=== PATIENT | male | born 1940 | race Caucasian/White ===

== ENCOUNTER → 2018-07-06 13:02 | Outpatient (CLI) | payer MEDICARE, OTHER, SELFPAY ==
--- NOTE | 2018-07-06 13:06 | DI.RAD.S_ITS ---
PROCEDURE: XR THORACIC SPINE 3V INDICATIONS: Myalgia, unspecified site/Other dorsalgia TECHNIQUE: 3 views of the thoracic spine were acquired. COMPARISON: None. FINDINGS: Bones: No fractures or dislocations. No suspicious bony lesions. Diffuse endplate spurring and sclerosis. Cervical disc degeneration also incidentally noted. Facet arthropathy. Partially mild lateral curvature of the visualized spine. Soft tissues: No paravertebral stripe thickening. Minimal diffuse thoracic disc space narrowing. IMPRESSION: Diffuse thoracic spine endplate spurring and sclerosis. No fracture. Cervical degeneration and facet arthropathy. Dictated by: Mauro Blackburn M.D. on 07/06/2018 at 13:49 Approved by: Mauro Blackburn M.D. on 07/06/2018 at 13:52
--- NOTE | 2018-07-06 13:06 | DI.RAD.S_ITS ---
PROCEDURE: XR LUMBAR SPINE 2-3V INDICATIONS: Myalgia, unspecified site/Other dorsalgia TECHNIQUE: 3 views of the lumbar spine were acquired. COMPARISON: None. FINDINGS: Bones: No fracture or focal osseous destruction. Straightening of the normal lumbar lordosis. Diffuse facet arthropathy. Moderate L5-S1 disc space narrowing. Elsewhere, mild uniform narrowing of the remaining lumbar disc spaces. Partially visualized dextrocurvature of the thoracolumbar spine Soft tissues: Overlying bowel gas pattern is normal. No suspicious soft tissue calcifications. Scattered vascular calcifications. IMPRESSION: Multilevel lumbar disc degeneration, most pronounced at L5-S1. Diffuse facet arthropathy. Straightening of the normal lumbar lordosis. Partially visualized thoracolumbar dextroscoliosis. Dictated by: Mauro Blackburn M.D. on 07/06/2018 at 13:44 Approved by: Mauro Blackburn M.D. on 07/06/2018 at 13:49
== END ==
PROVIDERS: PCP Physician Assistant; Visit Provider Physician Assistant
DX: M79.10 Myalgia, unspecified site (principal); M54.89 Other dorsalgia; M51.37 Other intervertebral disc degeneration, lumbosacral region; M47.816 Spondylosis without myelopathy or radiculopathy, lumbar region; M41.85 Other forms of scoliosis, thoracolumbar region
CPT/HCPCS: 72072; 72100

== ENCOUNTER → 2018-10-20 08:41 | Outpatient (CLI) | payer MEDICARE, OTHER, SELFPAY ==
--- NOTE | 2018-10-20 | DI.MRI.S_ITS ---
PROCEDURE: MR LUMBAR SPINE WO CON INDICATIONS: OTHER INTERVERTABRAL DISC DEGENERATION, LUMBAR REG. TECHNIQUE: Noncontrast sagittal T1 spin echo and T2 fast echo, sagittal STIR, axial T1 and T2 fast spin echo through the lumbar spine. In cases with scoliosis, additional coronal T2 fast spin echo may be performed. COMPARISON: None. FINDINGS: Image quality: Excellent. Alignment and Curvature: There is normal bony alignment. Bone Marrow: Marrow is of normal overall signal. Schmorl's node involving the inferior endplate of L3, with minimal adjacent marrow edema. No acute vertebral body compression fractures. Spinal Cord: Conus medullaris terminates at the L1/2 level. Visualized cord demonstrates normal signal and size. Paraspinous Soft Tissues: No paravertebral masses. L1-L2: Normal appearance. L2-L3: Normal appearance. L3-L4: Broad-based posterior disc bulge bilateral facet arthropathy. Mild central canal narrowing. Mild partial effacement of both lateral recesses. Mild right foraminal narrowing. No definite left foraminal stenosis L4-L5: Mild broad-based posterior disc bulge and bilateral facet arthropathy. No definite canal or lateral recess narrowing. Mild left and moderate right foraminal narrowing L5-S1: Broad-based posterior disc bulge bilateral facet arthropathy. No central canal or lateral recess narrowing. [id number] left and severe right foraminal stenosis with mild flattening deformity of the exiting nerve root primarily in the cephalocaudad dimension IMPRESSION: Lower lumbar spondylosis and facet arthropathy primarily from L3-S1. Severe right L5-S1 foraminal stenosis. Moderate right L4-L5 foraminal stenosis. Straightening of the normal cervical lordosis. Dictated by: Mauro Blackburn M.D. on 10/22/2018 at 12:32 Approved by: Mauro Blackburn M.D. on 10/22/2018 at 12:40
== END ==
PROVIDERS: PCP Physician Assistant; Visit Provider Physician Assistant
DX: M51.36 Other intervertebral disc degeneration, lumbar region (principal); M47.816 Spondylosis without myelopathy or radiculopathy, lumbar region; M47.817 Spondylosis without myelopathy or radiculopathy, lumbosacral region; M48.061 Spinal stenosis, lumbar region without neurogenic claudication; M48.07 Spinal stenosis, lumbosacral region
CPT/HCPCS: 72148

== ENCOUNTER 2019-02-21 06:01 | Inpatient (IN) | payer MEDICARE, OTHER, SELFPAY ==
[2019-02-19 12:40] VITALS: BMI 25.9
[2019-02-21] VITALS (13 sets, daily range): BP systolic 98–154; BP diastolic 61–77; PULSE 68–91; RESP 10–20; TEMP 36.4–37.1; O2SAT 90–98; BMI 25.9
--- NOTE | 2019-02-21 | DI.RAD.S_ITS ---
PROCEDURE: XR LUMBAR SPINE 2-3V INDICATIONS: L5-S1 Laminectomy and instrumented fusion with bone graft TECHNIQUE: 2 views of the lumbar spine were acquired. COMPARISON: [facility], CR, XR LUMBAR SPINE 2-3V, 07/06/2018, 13:11. FINDINGS: Bones: 5 [id number] vertebrae are present. There is normal bony alignment established after transverse pedicle screw placement and vertical fixation rods crossing the L5-S1 level with interbody cage this prosthesis at L5-S1 centrally positioned. No vertebral body compression fractures. No suspicious bony lesions. Soft tissues: Overlying bowel gas pattern is normal. No suspicious soft tissue calcifications. IMPRESSION: Normal postoperative alignment after L5-S1 fusion by bilateral transverse pedicle screws and bilateral vertical fixation rods, and placement of interbody cage this prosthesis. Dictated by: Gautam Leon M.D. on 02/21/2019 at 10:50 Approved by: Gautam Leon M.D. on 02/21/2019 at 10:51
[2019-02-21] MEDS: LACTATED RINGERS 1,000 ML 42 ML IV ×2 (07:00→09:41)
--- NOTE | 2019-02-21 07:24 | PM.PREOP ---
Pre-operative Note Interval Note History & Physical reviewed/Exam performed by Physician: Yes Changes to H&P: No
--- NOTE | 2019-02-21 07:27 | PM.OP.1 ---
Operative Date/Time/Diagnoses Date of procedure: 02/21/19 Time of procedure: 10:15 Pre-op diagnosis: Lumbar stenosis with radiculopathy Post-op diagnosis: same Procedure & Clinicians Procedure: L5-S1 TLIF (post/post innerbody fusion) with cage L5-S1 laminectomy L5, S1 screws Iliac crest bone graft aspirate Use of microscope Placement of epidural catheter Same procedure as scheduled: Yes Indications: [age] year old male with intractable pain from stenosis. They had failed conservative management and requested operative intervention. Risks and benefits of surgery were discussed and appropriate consents were obtained. Surgeon: Ector Wilosn Board Machine Set Up Operator: Jacquelin Shields Anesthesia Type: General Operative Notes Findings: None Closure Type: primary Specimen(s): none sent Prosthetic devices, grafts, tissues, transplants, or devices: NuVasive MAS Reline screws Globus Rise cage Applied: catheter Estimated Blood Loss (mL): 20 Procedure in detail: The patient was brought to the operating room and intubated on the table. A time-out was performed. They were then rolled over to the well-padded Ifeanyi table in the prone position. Preoperative antibiotics were given. The back was prepped and draped in the standard sterile fashion. Using fluoroscopy, a 4 cm longitudinal incision was made to the right of the midline. We used Bovie to come down to and split the lumbodorsal fascia. Using fluoroscopy and monitoring, we then percutaneously placed Jamshidi needles down the pedicles of L5 and S1 on the right side. His bone was soft and we did not need to use a mallet for this. These were changed out to guidewires and then we tapped and then placed the NuVasive MAS Reline screw shanks. We then opened up the retractors and used Bovie to clear up the posterolateral gutter as well as medially along the lamina to the spinous processes. A bur was used to decorticate the transverse processes. We brought in the microscope. Using a combination of bur and Kerrison rongeurs, a laminectomy was performed from the right side. We cleared over past the midline and carefully depressed the dura until we were able to decompress the opposite side. We cleared out the neural foramen. This completed the laminectomy at L5-S1. We then began the TLIF prep. A complete facetectomy was performed on this side at L5-S1. We carefully cleaned up the remainder of the foramen until we could easily retract the exiting root as well as clearing medially below the dura and expose the disc space. The disc was prepped with bipolar and then an annulotomy was performed. We performed a diskectomy using a combination of paddles, viviana, pituitaries, and curettes. We distracted the disc using a paddle and locked the retractor in an open position. We then filled the disc space with Osteocel bone graft. We then placed the globus Rise cage under fluoroscopy. As we began expanding the cage stayed on the superior endplate of S1 but began pushing up through the inferior endplate of L5. I think this is just due to his osteoporosis. We then filled in posterior to the cage with more bone graft. The distraction on the retractor was released to compress down. This completed the posterior interbody fusion portion of the TLIF at L5-S1. We then placed the screw heads, tyler, and locked down the set screws. The wound was copiously irrigated. A small stab incision was made over the PSIS. We used a Jamshidi needle to aspirate several mL of bone marrow from the pelvis. This was mixed with the remaining Osteocel and combined with all of the locally harvested bone graft and placed in the posterolateral gutter for the posterior fusion of the TLIF at L5-S1. An epidural catheter was then placed in the spinal canal by carefully depressing the dura and advancing it 6 cm cephalad under the remaining lamina without resistance. The muscle fascia was closed. The catheter was then injected with a solution containing 4 mL of 0.5% Marcaine, 1 mg Stadol, 4 mg Duramorph, and 100 mcg of fentanyl. This was injected without resistance and the catheter was pulled. We then went to the opposite side. Again using fluoroscopy, a 3 cm incision was made and Bovie was used to come down to split the fascia. Using neural monitoring and fluoroscopy, Jamshidi needles were advanced down the pedicles of L5 and S1 on the left side. These were switched over guidewires, tapped, and screws placed. We then placed a tyler and locked the set screws on this side. The wound was irrigated. The fascia was closed. Vancomycin powder was placed in the wounds. The superficial and skin were closed. A sterile dressing was placed. The patient was then rolled over extubated and brought to recovery room without complications. Complications: none Condition: stable Disposition: PACU Plan for aftercare: Inpatient. Up with PT.
[2019-02-21] MEDS: CEFAZOLIN 2 GM/100 ML FROZ.PIGGY IV ×3 (07:47→23:58)
[2019-02-21] MEDS: THROMBIN (RECOMBINANT) 5,000 UNIT VIAL 5000 UNIT TOP (08:24)
[2019-02-21] MEDS: VANCOMYCIN 1,000 MG VIAL 1000 MG TOP (08:25)
[2019-02-21] MEDS: SODIUM CHLORIDE 0.9% 1,000 ML, GENTAMICIN 80 MG IRR ×2 (08:25→08:31)
[2019-02-21] MEDS: BUPIVACAINE 0.5% (PF) 4 ML, MORPHINE-PF 4 MG, BUTORPHANOL 1 MG, fentaNYL 100 MCG INJ (08:32)
--- NOTE | 2019-02-21 08:35 | SUR.OPER ---
Prone on spine table, head in foam head support, padded chest and pelvic supports, gel pad at knees, lower legs supported by pillows; nipples, genitalia and toes free of pressure, arms secured on foam padded arm boards at <90 degrees abduction. Tape over blanket at thigh secured to table.
--- NOTE | 2019-02-21 09:17 | CM.DANOTE ---
Addendum entered by Melanie Marroquin LPN 02/21/19 09:30: INPT admission status: now confirmed/UR RN. Original Note: Discharge Planning/Care Management DCP: assessment: initiated: pt at this time is still in surgery. Case received, EMR reviewed: documentation including the pre-op assessment: below: with Sharon Mckenna: noted. Pt is a 79 year old male who admitted early this morning for a planned spinal surgery. Surgeon: Dr. Garcia Payer: Medicare and [facility] PCP: Briseida Golden Pt lives with his spouse Chris in a one level home in [place]. Review of the scanned H&P: TALIA Romero: shows medical hx of Juvenile RA, hypertension, COPD and anemia. Anticipate PT and OT will be ordered. DCP team will be following for d/c issues and options. Admission status: in review: UR PREMA Suazo. CM Discharge Assessment Start: 02/21/19 09:17 Freq: Status: Active Protocol: Document 02/21/19 09:17 ITV (Rec: 02/21/19 09:17 ITV [id number]) Discharge Planning Assessment Advance Directives? No History Provided By Medical Record Prior Living Arrangements House Household Members spouse Review Status In Process Pre-Anesthesia Assessment Start: 02/19/19 12:40 Freq: Status: Active Protocol: Document 02/19/19 12:40 CAB (Rec: 02/19/19 13:38 CAB [id number]) Pre-Anesthesia Assessment Patient Also Known As Henriquez (AKA) Patient Information Reviewed Via Phone Assessment Assessment Completed With Patient Diagnostic Results BMP/CMP CBC EKG Comment Outside labs/EKG scanned to record, labs are within PCP pre-op note Primary Care Provider Briseida Golden Medical Clearance Received Yes Seen Specialist in Last 12 Months Yes Specialist Seen Orthopedist Comment PCP pre-op clearance 02/01/19 scanned into chart Primary Language Italian Private Advisor Required No Height 177.8 cm Weight 82.1 kg Body Mass Index (BMI) 25.9 Hearing Ability Normal Visual Assist Glasses Dentition Type Teeth, Natural Present Barriers to Learning None Other Aids No Hx Anesthesia Reactions No Hx Family Anesthesia Reaction No Hx Malignant Hyperthermia No Hx Blood Transfusions No Anesthesia Review Requested No alcohol intake former Alcohol Intake Frequency Other: Quit 30 years ago Smoking Status Former smoker how long ago did patient quit smoking Quit 2005 Substance Use Type does not use Pain Present Pain Reported Musculoskeletal Symptoms Abnormal Gait Back Pain Difficulty Walking Joint Pain Muscle Cramps Muscle Spasms Muscle Weakness Numbness Radiating Pain into Limb Tingling History of Falling (Recent or History of No ) Patient is completely paralyzed or No completely immobile Mental Status Oriented to own ability Is patient on oxygen? No Does patient have MARMOLEJO/SOB No Hx Sleep Apnea No Currently Taking a Beta Guerda No Can You Climb a Flight of Stairs Without Yes SOB Hx Chest Pain No Hx SOB No Hx Syncope or Dizziness No Anti-Coagulant Therapy No Has a Bank Boss No Cardiac Testing No Hx Pacemaker/ICD No Pacemaker Rep Required? No Cardiac Clearance Received Not Applicable Diet Type At Home Regular dysphagia No Genitourinary Symptoms Change in Urinary Stream Bladder Pattern Frequency Hesitancy Nocturia Retention Urinary Catheter Present No Hx Urinary Self Catheterization No Diabetes No: Pre-diabetes HgbA1C 6.1 Date 02/01/19 Hx Drug Resistant Organism H-pylori Presence of External or Internal Medical No Devices Have you traveled outside the [facility] in the last 30 days? Marital Status Lives With spouse Prior Living Arrangements House Number of Floors (Floors) One Floor Support System Spouse Does the Patient Have Assistance After Yes Surgery Patient Discharge Plan Description Return Home Comment Pt advised 3 day length of stay per surgeon's office Feels Safe in Current Environment Yes Been Physically Hurt or Threatened By a No Person in Current Environment Do you have thoughts of harming yourself None or others? Are you currently considering suicide? No Do you have a plan to hurt yourself or No Plan others? Do You Have Any Spiritual Beliefs That No May Affect Your HC Choices? Do You Have Any Cultural Practices That No May Affect Your HC Choices? Who Can We Speak to About Patient's Care Family, friends Identifying Code for Release of Patient Declines to issue Information Health Care Proxy/Next of Kin Paloma () Health Care Proxy Emergency Contact Name Paloma () Emergency Contact Advance Directives? Pt unsure Power of Intern Architect No PAC Instructions Do not shave/clip surgical site Durable medical equipment Medications to take/avoid Nasal antibiotic No ETOH/petroleum product on skin DOS NPO Post-op transportation Pre-surgical wash Sturdy shoes/comfortable clothes Do not bring valuables and remove jewelry
[2019-02-21] MEDS: LACTATED RINGERS 1,000 ML 125 ML IV ×2 (13:20→21:43)
[2019-02-21] MEDS: SIMVASTATIN 10 MG TABLET PO ×2 (13:26→20:51)
[2019-02-21] MEDS: CELECOXIB 200 MG CAPSULE 400 MG PO (13:41)
--- NOTE | 2019-02-21 16:10 | PT.IIE ---
Current Diagnoses Spinal stenosis, lumbar region with neurogenic claudication (02/21/19) Surgery Performed Operation Date: 02/21/19 07:45 Actual Procedures p L5S1 laminectomy and instrumented fusion with bone graft - Ector Wilson MD Surgical History (Last Updated 02/19/19 @ 13:15 by Sharon Mckenna, RN) History of tonsillectomy and adenoidectomy (Acute) Hx of bilateral cataract extraction (Acute) Hx of transurethral resection of prostate (Acute) Medical History (Last Updated 02/19/19 @ 13:17 by Sharon Mckenna RN) Acid reflux (Acute) Allergic rhinitis (Acute) BPH (benign prostatic hyperplasia) (Acute) COPD (chronic obstructive pulmonary disease) (Acute) DDD (degenerative disc disease) (Acute) Dermatitis (Acute) Detached vitreous humor (Acute) H. pylori infection (Acute ~2001) HLD (hyperlipidemia) (Acute) HTN (hypertension) (Acute) History of juvenile rheumatoid arthritis (Acute) Numbness and tingling (Acute) Sciatica (Acute) Skin cancer (Acute ~2008) Physical Therapy Inpatient Evaluation/Re-Eval M1 PT/OT-IP Prior Functional Status Start: 02/21/19 18:27 Freq: NEEDED Status: Active Protocol: Document 02/21/19 16:10 AB (Rec: 02/21/19 18:50 AB [id number]) Medical Review Prior Functional Status Medical History Reviewed Yes Communication able to make needs known Mobility and Gait pt stated that he is independent with all mobilities and ambulation without AD Social History Household Members spouse Living Arrangements House Number of Floors (Floors) One Floor Number of Stairs To Enter/Railing? 1 step to enter Home Environment Standard Height Toilet Walk in Shower Built-In Shower Seat Home Equipment Front Wheel Walker Employment Status Retired M2 PT-IP Current Condition Start: 02/21/19 18:27 Freq: NEEDED Status: Active Protocol: Document 02/21/19 16:10 AB (Rec: 02/21/19 18:50 AB [id number]) Physical Therapy Current Condition Current Condition Evaluation Date 02/21/19 Treatment Diagnosis s/p L5-S1 TLIF/lami; difficulty in walking Onset Date 02/21/19 Precautions Lumbar Precautions Log Roll No Twisting Limit Bending Lifting Restriction of 10 lbs Gait Belt above Incisional Area M3 PT-IP Subjective Start: 02/21/19 18:27 Freq: NEEDED Status: Active Protocol: Document 02/21/19 16:10 AB (Rec: 02/21/19 18:50 AB [id number]) Subjective Physical Therapy Visit Type Type Initial Evaluation Visit Start Time 16:10 Visit Stop Time 17:04 Total Visit Minutes 54 Number of WASHTUB WORKER HELPER Visits 0 Physical Therapy Visit Comments Patient Comments pt agreeable to do PT Therapy Pain Assessment Pain When Pain Assessed At Rest Pain Present Pain Present Pain Reported Location Lower Back Intensity 2 Scale Used Numeric (1 - 10) Pain Management Techniques Re-positioning Timing of Activity with Medications M4 PT-IP Mobility and Gait Start: 02/21/19 18:27 Freq: NEEDED Status: Active Protocol: Document 02/21/19 16:10 AB (Rec: 02/21/19 18:50 AB [id number]) PT-Bed Mobility Assessment Rolling Type of Rolling Log Rolling Level of Assist Minimal Assistance Supine to Sit Supine to Sit Minimal Assistance 1 Person Assistance Scooting Scooting to Edge of Bed Standby Assistance PT-Transfer Assessment Sit to and From Stand Sit to and from Stand Minimal Assistance 1 Person Assistance Use of Upper Extremities Equipment Transfer Assistive Device Gait Belt Front Wheeled Walker Orthotic/Prosthetic Devices or Brace: No Transfers Transfer Destination Chair Transfer Technique Stand Step Pivot Transfer Ability Level of Assist Minimal Assistance 1 Person Assistance Use of Upper Extremities Comments Mobility Comments BP: 138/68 reviewed back precautions and log roll bed mobility. pt with confusion and stated that it is hard for him to process information at this time. provided one step commands and max cues with all tasks. spouse present during PT session. pt completed bed mobility supine to sit min A and max cues. pt required increase time to complete tasks and repeated cues needed . pt stated that he knows what PT is saying but unable to process instructions. BP: 135/67. pt completed sit to stand min A and cues. pt increase sweating and with (+) arm shaking. instructed pt to sit down. pt stated he is ok. call for nurse. BP checked: 135/58. pt rested for a few minutes and wants to stand again. pt completed sit to stand min A and cues and completed step transfer using FWW min A and cues. positioned pt on chair. set up dinner. call light set within reach. Left pt with spouse. Gait Assessment Comments Gait Comments pt was able to take a few steps during transfers using FWW min A and cues. PT-Balance Assessment Sitting Balance and Reactions Static Sitting Balance Ability Good Dynamic Sitting Balance Ability Good Standing Balance and Reactions Static Standing Balance Ability Fair Dynamic Standing Balance Ability Fair Device Used FWW M5 PT-IP Objective Assessments Start: 02/21/19 18:27 Freq: NEEDED Status: Active Protocol: Document 02/21/19 16:10 AB (Rec: 02/21/19 18:50 AB [id number]) Orientation Orientation/Cognition Level of Alertness Confusional State Orientation Name Place Situation Language Function Ability Hard of Hearing Safety Awareness Decreased Safety Awareness Memory Description Short Term Impaired Comments pt has difficulty processing information/instruction and needs max cues and repeated cues with all tasks. Gross Range of Motion Lower Extremity ROM Assessment Within Functional Limits Strength Lower Extremity Strength Assessment Within Functional Limits Coordination Assessment Gross Coordination Gross Coordination WNL Sensation Assessment Sensation Gross Sensation WNL Muscle Tone Muscle Tone WNL Yes M6 PT-IP Treatment Start: 02/21/19 18:27 Freq: NEEDED Status: Active Protocol: Document 02/21/19 16:10 AB (Rec: 02/21/19 18:50 AB [id number]) Physical Therapy Treatment Education Education Provided Precautions Weight Bearing Status Post-Op Packet Safety Other Treatments Other Treatment Performed informed pt and spouse regarding equipement needs: shower chair, RTS M7 PT-IP Assessment and Plan Start: 02/21/19 18:27 Freq: NEEDED Status: Active Protocol: Document 02/21/19 16:10 AB (Rec: 02/21/19 18:50 AB [id number]) PT Summary Assessment and Plan Potential Rehabilitation Potential Good Status of Condition at Evaluation Evolving Summary Impairments Pain ROM Strength Balance Coordination Cognition Bed Mobility Transfers Gait Activity Tolerance Assessment Summary pt requiring min A with mobility but was not able to do much ambulation today. pt has difficulty following instructions. will continue to assess progress. pt plans to go home with spouse to assist him. caregiver training will be conducted when appropriate and also stair climbing prior to d/c. Goals Bed Mobility Goal Independent Transfer Goal Standby Assistance Front Wheeled Walker Gait Goal Standby Assistance Front Wheel Walker Gait Distance 200 Other Goals up/down 1 step using FWW SBA Days to Meet Goals 5 Frequency of Treatment Frequency Of Treatment Twice a Day Treatment Plan Physical Therapy Treatment Plan Bed Mobility Training Transfer Training Gait Training Therapeutic Exercise Balance Retraining Post Op Education Discharge Planning Hot or Cold Pack Neuromuscular Re-ed Coordination Retraining Manual Therapy Other Recommendations and Next Treatment bed mobility, transfers, Focus ambulation Recommendations To Nursing Amount of Assist Needed 1 Person Assist Discharge Recommendations PT Discharge Recommendations Home with / Assist
[2019-02-21] MEDS: HYDROCODONE/ACET 5/325 TABLET 1 TAB PO (18:02)
[2019-02-21] MEDS: SENNOSIDES 8.6 MG TABLET 17.2 MG PO (20:51)
[2019-02-21] MEDS: DOCUSATE 100 MG CAPSULE PO (20:51)
[2019-02-21] MEDS: CELECOXIB 200 MG CAPSULE PO (20:51)
[2019-02-22] VITALS (7 sets, daily range): BP systolic 110–166; BP diastolic 44–83; PULSE 62–90; RESP 15–18; TEMP 36.8–37.3; O2SAT 92–96
[2019-02-22] MEDS: LACTATED RINGERS 1,000 ML 125 ML IV (05:49)
[2019-02-22 06:59] LABS: Hematocrit 40.2 % (41-53); Hemoglobin 13.3 g/dL (13.5-17.5)
--- NOTE | 2019-02-22 07:29 | PM.PNPO.1 ---
Subjective Date Patient Seen: 02/22/19 Time Patient Seen: 07:29 Interval history: He is doing great now. No pain. Exam Vital Signs (past 8 hours): - 02/22/19 00:00 02/22/19 05:00 Temperature 98.8 F 98.8 F Pulse Rate 65 62 Respiratory Rate 18 18 Blood Pressure 118/70 110/81 Pulse Oximetry 96 96 Oxygen Delivery Method Room Air Oxygen Flow Rate 0 Const Orientation: alert and oriented x3 Back/Spine/Pelvis Other: CDI. 5/5 motor both lower extremities Objective Labs Result Diagrams: 02/22/19 06:59 Labs: Laboratory Results - last 24 hr 02/22/19 06:59 Hgb 13.3 L Hct 40.2 L Assessment & Plan Post-op Postoperative Procedures Operation Date: 02/21/19 07:45 Actual Procedures Side Surgeon p L5S1 laminectomy and instrumented fusion with bone graft Ector Wilson MD He is doing great. I presume his epidural will wear off and he will be having more pain as the day progresses. Mobilize with physical therapy. If he is still doing great this afternoon could possibly go home.
--- NOTE | 2019-02-22 08:48 | CM.DPC ---
DCP: continued: met with pt this morning as planned. Introduced self and role. Pt is found sitting up in bed, looking on [employer] site for needed DME. He says he plans to have the therapy team look at his list and then will order accordingly. He already has the FWW at home. Pt confirms his plan for home with his 's support when stable for same. He reports brief PT yesterday afternoon. I was able to go a few feet to the chair. He says he is looking forward to his more extensive therapy sessions today. P: follow prn. Pt's plan is home when stable and thus far looks good for same.
[2019-02-22] MEDS: DOCUSATE 100 MG CAPSULE PO ×2 (09:52→20:24)
[2019-02-22] MEDS: CELECOXIB 200 MG CAPSULE PO ×2 (09:52→20:23)
[2019-02-22] MEDS: hydroCHLOROthiazide 12.5 MG CAPSULE PO (09:52)
--- NOTE | 2019-02-22 10:06 | PT.IPTN ---
Current Diagnoses Spinal stenosis, lumbar region with neurogenic claudication (02/21/19) Surgery Performed Operation Date: 02/21/19 07:45 Actual Procedures p L5S1 laminectomy and instrumented fusion with bone graft - Ector Wilson MD Physical Therapy Treatment Note M2 PT-IP Current Condition Start: 02/21/19 18:27 Freq: NEEDED Status: Active Protocol: Document 02/21/19 16:10 AB (Rec: 02/21/19 18:50 AB [id number]) Physical Therapy Current Condition Current Condition Evaluation Date 02/21/19 Treatment Diagnosis s/p L5-S1 TLIF/lami; difficulty in walking Onset Date 02/21/19 Precautions Lumbar Precautions Log Roll No Twisting Limit Bending Lifting Restriction of 10 lbs Gait Belt above Incisional Area M3 PT-IP Subjective Start: 02/21/19 18:27 Freq: NEEDED Status: Active Protocol: Document 02/22/19 09:30 LJ (Rec: 02/22/19 10:05 LJ [id number]) Subjective Physical Therapy Visit Type Type Treatment Note Visit Start Time 09:30 Visit Stop Time 09:56 Total Visit Minutes 26 Number of DE ICER ELEMENT WINDER Visits 1 Physical Therapy Visit Comments Patient Comments pt agreeable to do PT Therapy Pain Assessment Pain When Pain Assessed During Mobility Pain Present Pain Present Pain Reported Location Lower Back Intensity 1 Pain Management Techniques Re-positioning Timing of Activity with Medications M4 PT-IP Mobility and Gait Start: 02/21/19 18:27 Freq: NEEDED Status: Active Protocol: Document 02/22/19 09:30 LJ (Rec: 02/22/19 10:05 LJ [id number]) PT-Bed Mobility Assessment Rolling Type of Rolling Log Rolling Level of Assist Standby Assistance Supine to Sit Supine to Sit Standby Assistance Head of Bed Elevated Bedrails Scooting Scooting to Edge of Bed Standby Assistance PT-Transfer Assessment Sit to and From Stand Sit to and from Stand Contact Guard Assistance Use of Upper Extremities Equipment Transfer Assistive Device Gait Belt Front Wheeled Walker Orthotic/Prosthetic Devices or Brace: No Transfers Transfer Destination Chair Transfer Technique Stand Step Pivot Transfer Ability Level of Assist Standby Assistance Use of Upper Extremities Comments Mobility Comments Reviewed precautions and pt able to recite and understand. SBA with bed mobility and transfers. No confusion and pt able to demonstrate safety with movement. Gait Assessment Comments Gait Comments Pt ambulated from room to stairs with proper use of FWW and appropriate posture. Performed stair climbing because he wanted to see what he could do. Pt was safe on stairs. Standing in front of chair in room pt performed stationary marching without using FWW for support. Stood while nursing removed Sloan then sat in chair using hip hinging and UEs to carefully lower himself down. M5 PT-IP Objective Assessments Start: 02/21/19 18:27 Freq: NEEDED Status: Active Protocol: Document 02/21/19 16:10 AB (Rec: 02/21/19 18:50 AB [id number]) Orientation Orientation/Cognition Level of Alertness Confusional State Orientation Name Place Situation Language Function Ability Hard of Hearing Safety Awareness Decreased Safety Awareness Memory Description Short Term Impaired Comments pt has difficulty processing information/instruction and needs max cues and repeated cues with all tasks. Gross Range of Motion Lower Extremity ROM Assessment Within Functional Limits Strength Lower Extremity Strength Assessment Within Functional Limits Coordination Assessment Gross Coordination Gross Coordination WNL Sensation Assessment Sensation Gross Sensation WNL Muscle Tone Muscle Tone WNL Yes M6 PT-IP Treatment Start: 02/21/19 18:27 Freq: NEEDED Status: Active Protocol: Document 02/22/19 09:30 LJ (Rec: 02/22/19 10:05 SOLITARIO [id number]) Physical Therapy Treatment Education Education Provided Precautions Weight Bearing Status Post-Op Packet Safety Other Treatments Other Treatment Performed reviewed equipment he was going to order from [employer] to use at home M7 PT-IP Assessment and Plan Start: 02/21/19 18:27 Freq: NEEDED Status: Active Protocol: Document 02/22/19 09:30 SOLITARIO (Rec: 02/22/19 10:05 SOLITARIO [id number]) PT Summary Assessment and Plan Summary Assessment Summary Pt stable and demonstrating safety awarreness and precautions. Ambulated 125' from room to stairs without c/ o pain of dizziness. Uses FWW properly and is careful with body mechanics. Goals Bed Mobility Goal Independent Transfer Goal Standby Assistance Front Wheeled Walker Gait Goal Standby Assistance Front Wheel Walker Gait Distance 200 Other Goals up/down 1 step using FWW SBA Frequency of Treatment Frequency Of Treatment Twice a Day Treatment Plan Physical Therapy Treatment Plan Bed Mobility Training Transfer Training Gait Training Therapeutic Exercise Balance Retraining Post Op Education Discharge Planning Hot or Cold Pack Neuromuscular Re-ed Coordination Retraining Manual Therapy Other Recommendations and Next Treatment bed mobility, transfers, Focus ambulation Recommendations To Nursing Amount of Assist Needed 1 Person Assist Discharge Recommendations PT Discharge Recommendations Home with / Assist
--- NOTE | 2019-02-22 10:32 | PC.NURSE ---
Addendum entered by Trish Daniels R.N. 02/22/19 15:33: - initially pt unable to void approx 1330, bladder scan check shous 475ml in, pt later voided 200ml by 1400 and a recheck with scan shows 675ml in, pt up again to void and 475ml voided, a fax sent to [facility] in surg re possible need for in/out, oncoming [employer] security for raheel now rechecking with bladder scan for pvr. Original Note: AM NOTE - pt is alert, denies discomfort, back dsg d,i with small area shadow drainage distal end, no nausea, carla diet, no flatus yet, +bt,discussed constipation and narcotics, ra 95%, uses IS to goal, no numbness, does have hx tingling feet, footie scd removed for PT this am, das balloon deflated and dc'd w/o difficulty, later up with phys therapy, using fww, ambul hallway, gait steady.
--- NOTE | 2019-02-22 16:17 | PT.IPTN ---
Current Diagnoses Spinal stenosis, lumbar region with neurogenic claudication (02/21/19) Surgery Performed Operation Date: 02/21/19 07:45 Actual Procedures p L5S1 laminectomy and instrumented fusion with bone graft - Ector Wilson MD Physical Therapy Treatment Note M2 PT-IP Current Condition Start: 02/21/19 18:27 Freq: NEEDED Status: Active Protocol: Document 02/21/19 16:10 AB (Rec: 02/21/19 18:50 AB [id number]) Physical Therapy Current Condition Current Condition Evaluation Date 02/21/19 Treatment Diagnosis s/p L5-S1 TLIF/lami; difficulty in walking Onset Date 02/21/19 Precautions Lumbar Precautions Log Roll No Twisting Limit Bending Lifting Restriction of 10 lbs Gait Belt above Incisional Area M3 PT-IP Subjective Start: 02/21/19 18:27 Freq: NEEDED Status: Active Protocol: Document 02/22/19 15:45 LJ (Rec: 02/22/19 16:17 LJ [id number]) Subjective Physical Therapy Visit Type Type Treatment Note Visit Start Time 15:45 Visit Stop Time 16:08 Total Visit Minutes 23 Physical Therapy Visit Comments Patient Comments pt agreeable to do PT M4 PT-IP Mobility and Gait Start: 02/21/19 18:27 Freq: NEEDED Status: Active Protocol: Document 02/22/19 15:45 LJ (Rec: 02/22/19 16:17 LJ [id number]) PT-Transfer Assessment Sit to and From Stand Sit to and from Stand Standby Assistance Use of Upper Extremities Equipment Transfer Assistive Device Gait Belt Front Wheeled Walker Orthotic/Prosthetic Devices or Brace: No Transfers Transfer Destination Chair Transfer Technique Stand Step Pivot Transfer Ability Level of Assist Standby Assistance Use of Upper Extremities Comments Mobility Comments Pt SBA for all mobility and transfers. Able to transfer w/ o use of FWW. Standing balance after transfer good w/o dizziness. Gait Assessment Gait Gait Assistance Required: Standby Assistance Distance (Feet) 300 Able to Maintain Weight Bearing Status Yes During Gait Assistive Devices Assistive Device None Gait Belt 4 Wheeled Walker Orthotic/Prosthetic Devices or Brace: No Gait Deviations General Gait Pattern Decreased Stride Length Decreased Feet Clearance Factors Limiting Gait Function Factors Limiting Gait Function Decreased Activity Tolerance Comments Gait Comments Pt showing good gait mechanics able to ambulate in hallway 50% of tx w/o AD. Demonstrates safety awareness and pacing. Normalizing gait M5 PT-IP Objective Assessments Start: 02/21/19 18:27 Freq: NEEDED Status: Active Protocol: Document 02/21/19 16:10 AB (Rec: 02/21/19 18:50 AB [id number]) Orientation Orientation/Cognition Level of Alertness Confusional State Orientation Name Place Situation Language Function Ability Hard of Hearing Safety Awareness Decreased Safety Awareness Memory Description Short Term Impaired Comments pt has difficulty processing information/instruction and needs max cues and repeated cues with all tasks. Gross Range of Motion Lower Extremity ROM Assessment Within Functional Limits Strength Lower Extremity Strength Assessment Within Functional Limits Coordination Assessment Gross Coordination Gross Coordination WNL Sensation Assessment Sensation Gross Sensation WNL Muscle Tone Muscle Tone WNL Yes M6 PT-IP Treatment Start: 02/21/19 18:27 Freq: NEEDED Status: Active Protocol: Document 02/22/19 09:30 LJ (Rec: 02/22/19 10:05 LJ [id number]) Physical Therapy Treatment Education Education Provided Precautions Weight Bearing Status Post-Op Packet Safety Other Treatments Other Treatment Performed reviewed equipment he was going to order from [employer] to use at home M7 PT-IP Assessment and Plan Start: 02/21/19 18:27 Freq: NEEDED Status: Active Protocol: Document 02/22/19 15:45 LJ (Rec: 02/22/19 16:17 LJ [id number]) PT Summary Assessment and Plan Summary Impairments Strength Coordination Gait Activity Tolerance Assessment Summary Pt is safe in transfers and gait. Stattes he has no pain and feels stable ambulating w/ o AD. Pt did stair training again going up and down x3 safely with no LOB or break in precautions. Safe to D/C home with assist Goals Bed Mobility Goal Independent Transfer Goal Standby Assistance Front Wheeled Walker Gait Goal Standby Assistance Front Wheel Walker Gait Distance 200 Other Goals up/down 1 step using FWW SBA Frequency of Treatment Frequency Of Treatment Twice a Day Treatment Plan Physical Therapy Treatment Plan Bed Mobility Training Transfer Training Gait Training Therapeutic Exercise Balance Retraining Post Op Education Discharge Planning Hot or Cold Pack Neuromuscular Re-ed Coordination Retraining Manual Therapy Recommendations To Nursing Amount of Assist Needed 1 Person Assist Discharge Recommendations PT Discharge Recommendations Home with 24/ Assist
[2019-02-22] MEDS: SENNOSIDES 8.6 MG TABLET 17.2 MG PO (20:24)
[2019-02-22] MEDS: SIMVASTATIN 10 MG TABLET PO (20:24)
[2019-02-23 00:15] VITALS: BP 136/82; PULSE 71; RESP 18; TEMP 37.3; O2SAT 96
[2019-02-23 05:15] VITALS: BP 125/64; PULSE 66; RESP 18; TEMP 36.8; O2SAT 96
[2019-02-23] MEDS: CELECOXIB 200 MG CAPSULE PO (08:54)
[2019-02-23] MEDS: hydroCHLOROthiazide 12.5 MG CAPSULE PO (08:54)
[2019-02-23] MEDS: LOSARTAN 50 MG TABLET PO (08:54)
[2019-02-23] MEDS: DOCUSATE 100 MG CAPSULE PO (08:54)
[2019-02-23] MEDS: TAMSULOSIN 0.4 MG CAPSULE PO (08:54)
[2019-02-23] MEDS: HYDROCODONE/ACET 5/325 TABLET 1 TAB PO ×2 (08:55→12:55)
[2019-02-23 09:00] VITALS: BP 132/75; PULSE 95; RESP 16; TEMP 36.7; O2SAT 92
--- NOTE | 2019-02-23 10:03 | PM.PNPO.1 ---
Subjective Date Patient Seen: 02/23/19 Time Patient Seen: 10:03 Interval history: He is doing very well. He has had little pain is taking medication for that. He has had good urinary function and a bowel movement. Walking well. No leg pain. Exam Vital Signs (past 8 hours): - 02/23/19 05:15 02/23/19 09:00 Temperature 98.2 F 98.0 F Pulse Rate 66 95 H Respiratory Rate 18 16 Blood Pressure 125/64 132/75 Pulse Oximetry 96 92 Oxygen Delivery Method Room Air Oxygen Flow Rate 0 Const Orientation: alert and oriented x3 Back/Spine/Pelvis Other: Mild dry drainage. 5/5 motor both lower extremities Objective Labs Result Diagrams: 02/22/19 06:59 Assessment & Plan Post-op Postoperative Procedures Operation Date: 02/21/19 07:45 Actual Procedures Side Surgeon p L5S1 laminectomy and instrumented fusion with bone graft Ector Wilson MD He is doing great. Discharge home today.
--- NOTE | 2019-02-23 10:03 | PM.DS.1 ---
History of Present Illness Date Patient Seen: 02/23/19 Time Patient Seen: 10:05 Chief complaint: Translaminar Interbody Fusion Narrative: 79-year-old male with pain down the posterolateral aspect of both of his legs. He had been through physical therapy and epidural injections without relief. Discharge Providers Date of admission: 02/21/19 06:01 Discharge Date: 02/23/19 Primary care physician: Briseida Golden MD Consults: 02/21/19 11:28 Consult to Occupational Therapy Evaluate & Treat Comment: Physician Instructions: Evaluate and treat Consult to Physical Therapy Evaluate & Treat Comment: Physician Instructions: Evaluate and Treat Discharge provider: Ector Wilson MD Summary Discharge Diagnosis: Lumbar stenosis Hospital Course: He was brought to the operating room on 02/21/2019 where he underwent an L5-S1 laminectomy and fusion. He did very well postoperatively. He was mobilizing well with physical therapy. He had a history of urinary retention and had some difficulty urinating at 1st but by postoperative day 2. He was urinating well. He was mobilizing well and had good pain control. Status at Discharge Cognitive/behavioral status at discharge: oriented Functional status at discharge: uses cane/walker Overall status at discharge: patient is progressing back to baseline Exam Vital Signs (past 8 hours): - 02/23/19 05:15 02/23/19 09:00 Temperature 98.2 F 98.0 F Pulse Rate 66 95 H Respiratory Rate 18 16 Blood Pressure 125/64 132/75 Pulse Oximetry 96 92 Oxygen Delivery Method Room Air Oxygen Flow Rate 0 Const Orientation: alert and oriented x3 Back/Spine/Pelvis Other: Minimal dry drainage. 5/5 motor both lower extremities. Objective Labs Result Diagrams: 02/22/19 06:59 Discharge Plan Discharge Plan Patient Disposition: Home Discharge Med Rec/Prescriptions Prescriptions: New celecoxib 200 mg capsule 200 mg PO BID Qty: 60 RF: 0 hydrocodone-acetaminophen [[employer]] 5-325 mg tablet 1 tab PO Q4-6H PRN (Reason: pain) Qty: 20 RF: 0 tamsulosin [Flomax] 0.4 mg capsule 0.4 mg PO DAILY Qty: 20 RF: 0 Continued simvastatin 10 mg Tablet 10 mg PO QAM RF: 0 losartan-hydrochlorothiazide 50-12.5 mg Tablet 1 tab PO DAILY RF: 0 betamethasone dipropionate 0.05 % Ointment 0.1 % TOPICAL DAILY PRN (Reason: Dermatitis) RF: 0 Discontinued naproxen sodium [Aleve] 220 mg Capsule 220 mg PO DAILY RF: 0 Follow up/Referrals: Briseida Golden MD [Primary Care Provider] - Provider Discharge Instructions Diet: Diet as Tolerated Activity: limited BLT 10 lbs max lift Skin/Wound/Dressing Care Report to your healthcare provider any signs of infection, such as:: chills, fever, night sweats, increased pain, unusual drainage and unusual redness Dressing: may change dressing and shower POD#5 Visit Report/Discharge Packet Instructions: DI for Transforaminal Lumbar Interbody Fusion Stand Alone Forms: Surgery Discharge Discharge Data Primary Care Provider: Briseida Golden Attending Provider: Ector Wilson Admit Date/Time: 02/21/19 06:01
--- NOTE | 2019-02-23 12:24 | PC.NURSE ---
Addendum entered by Trish Daniels R.N. 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 Original Note: AM NOTE - pt is alert, states up to br earlier this am and back discomfort 4 on scale 0/10, had large bm this am, discussed medications and after breakfast given norco 5/325mg x 1 tab, up w/fww x 1 person to chair, PT in this am, in and pt will dc home, now voiding adequately.
--- NOTE | 2019-02-23 12:29 | PT.IPTN ---
Current Diagnoses Spinal stenosis, lumbar region with neurogenic claudication (02/21/19) Surgery Performed Operation Date: 02/21/19 07:45 Actual Procedures p L5S1 laminectomy and instrumented fusion with bone graft - Ector Wilson MD Physical Therapy Treatment Note M2 PT-IP Current Condition Start: 02/21/19 18:27 Freq: NEEDED Status: Active Protocol: Document 02/21/19 16:10 AB (Rec: 02/21/19 18:50 AB [id number]) Physical Therapy Current Condition Current Condition Evaluation Date 02/21/19 Treatment Diagnosis s/p L5-S1 TLIF/lami; difficulty in walking Onset Date 02/21/19 Precautions Lumbar Precautions Log Roll No Twisting Limit Bending Lifting Restriction of 10 lbs Gait Belt above Incisional Area M3 PT-IP Subjective Start: 02/21/19 18:27 Freq: NEEDED Status: Active Protocol: Document 02/23/19 11:50 CLB (Rec: 02/23/19 12:29 CLB [id number]) Subjective Physical Therapy Visit Type Type Patient Unavailable Notes Pt eating lunch will d/c this afternoon. M4 PT-IP Mobility and Gait Start: 02/21/19 18:27 Freq: NEEDED Status: Active Protocol: Document 02/22/19 15:45 LJ (Rec: 02/22/19 16:17 LJ [id number]) PT-Transfer Assessment Sit to and From Stand Sit to and from Stand Standby Assistance Use of Upper Extremities Equipment Transfer Assistive Device Gait Belt Front Wheeled Walker Orthotic/Prosthetic Devices or Brace: No Transfers Transfer Destination Chair Transfer Technique Stand Step Pivot Transfer Ability Level of Assist Standby Assistance Use of Upper Extremities Comments Mobility Comments Pt SBA for all mobility and transfers. Able to transfer w/ o use of FWW. Standing balance after transfer good w/o dizziness. Gait Assessment Gait Gait Assistance Required: Standby Assistance Distance (Feet) 300 Able to Maintain Weight Bearing Status Yes During Gait Assistive Devices Assistive Device None Gait Belt 4 Wheeled Walker Orthotic/Prosthetic Devices or Brace: No Gait Deviations General Gait Pattern Decreased Stride Length Decreased Feet Clearance Factors Limiting Gait Function Factors Limiting Gait Function Decreased Activity Tolerance Comments Gait Comments Pt showing good gait mechanics able to ambulate in hallway 50% of tx w/o AD. Demonstrates safety awareness and pacing. Normalizing gait M5 PT-IP Objective Assessments Start: 02/21/19 18:27 Freq: NEEDED Status: Active Protocol: Document 02/21/19 16:10 AB (Rec: 02/21/19 18:50 AB [id number]) Orientation Orientation/Cognition Level of Alertness Confusional State Orientation Name Place Situation Language Function Ability Hard of Hearing Safety Awareness Decreased Safety Awareness Memory Description Short Term Impaired Comments pt has difficulty processing information/instruction and needs max cues and repeated cues with all tasks. Gross Range of Motion Lower Extremity ROM Assessment Within Functional Limits Strength Lower Extremity Strength Assessment Within Functional Limits Coordination Assessment Gross Coordination Gross Coordination WNL Sensation Assessment Sensation Gross Sensation WNL Muscle Tone Muscle Tone WNL Yes M6 PT-IP Treatment Start: 02/21/19 18:27 Freq: NEEDED Status: Active Protocol: Document 02/22/19 09:30 LJ (Rec: 02/22/19 10:05 LJ [id number]) Physical Therapy Treatment Education Education Provided Precautions Weight Bearing Status Post-Op Packet Safety Other Treatments Other Treatment Performed reviewed equipment he was going to order from [employer] to use at home M7 PT-IP Assessment and Plan Start: 02/21/19 18:27 Freq: NEEDED Status: Active Protocol: Document 02/22/19 15:45 LJ (Rec: 02/22/19 16:17 LJ [id number]) PT Summary Assessment and Plan Summary Impairments Strength Coordination Gait Activity Tolerance Assessment Summary Pt is safe in transfers and gait. Stattes he has no pain and feels stable ambulating w/ o AD. Pt did stair training again going up and down x3 safely with no LOB or break in precautions. Safe to D/C home with assist Goals Bed Mobility Goal Independent Transfer Goal Standby Assistance Front Wheeled Walker Gait Goal Standby Assistance Front Wheel Walker Gait Distance 200 Other Goals up/down 1 step using FWW SBA Frequency of Treatment Frequency Of Treatment Twice a Day Treatment Plan Physical Therapy Treatment Plan Bed Mobility Training Transfer Training Gait Training Therapeutic Exercise Balance Retraining Post Op Education Discharge Planning Hot or Cold Pack Neuromuscular Re-ed Coordination Retraining Manual Therapy Recommendations To Nursing Amount of Assist Needed 1 Person Assist Discharge Recommendations PT Discharge Recommendations Home with 13/02 Assist
[2019-02-23 13:00] VITALS: BP 120/56; PULSE 90; RESP 17; TEMP 36.8; O2SAT 95
== END 2019-02-23 14:19 | disposition home or self-care (01) | DRG 455 ==
PROVIDERS: Admitting Provider Orthopaedic Surgery; PCP Internal Medicine; Visit Provider Orthopaedic Surgery
PROC: 0SG30AJ Fusion of Lumbosacral Joint with Interbody Fusion Device, Posterior Approach, Anterior Column, Open Approach (ICD-10-PCS; principal; 2019-02-21 07:45)
DX: M48.062 Spinal stenosis, lumbar region with neurogenic claudication (principal); M48.07 Spinal stenosis, lumbosacral region; J44.9 Chronic obstructive pulmonary disease, unspecified; M08.00 Unspecified juvenile rheumatoid arthritis of unspecified site; I10 Essential (primary) hypertension; E78.5 Hyperlipidemia, unspecified; Z87.891 Personal history of nicotine dependence
CPT/HCPCS: 72100; 76000; 85014; 85018; 97116; 97162; 97165; 97530; 97535; C1776; J0330; J0595; J0690; J1100; J2274; J2405; J2704; J3010

== ENCOUNTER → 2019-06-04 11:40 | Outpatient (CLI) | payer MEDICARE, OTHER, SELFPAY ==
[2019-02-21 11:31] VITALS: BMI 25.9
[2019-06-04 14:25] LABS: Vitamin B12 547 pg/mL (239-931)
[2019-06-06 20:24] LABS: Albumin 4.1 g/dL (3.8-4.8); Alpha 1 Globulin 0.2 g/dL (0.2-0.3); Beta 1 Globulin 0.4 g/dL (0.4-0.6); Gamma Globulin 1.1 g/dL (0.8-1.7); Protein, Total 7.2 g/dL (6.1-8.1)
== END ==
PROVIDERS: PCP Internal Medicine; Visit Provider Internal Medicine
DX: G62.9 Polyneuropathy, unspecified (principal)
CPT/HCPCS: 36415; 82607; 84155; 84165

== ENCOUNTER → 2019-06-07 13:51 | Outpatient (CLI) | payer MEDICARE, OTHER, SELFPAY ==
[2019-02-21 11:31] VITALS: BMI 25.9
== END ==
PROVIDERS: PCP Internal Medicine; Visit Provider Internal Medicine
DX: M81.0 Age-related osteoporosis without current pathological fracture (principal); Z87.891 Personal history of nicotine dependence
CPT/HCPCS: 77080

== ENCOUNTER → 2019-08-06 14:43 | Outpatient (CLI) | payer MEDICARE, OTHER, SELFPAY ==
[2019-02-21 11:31] VITALS: BMI 25.9
--- NOTE | 2019-08-06 | DI.RAD.S_ITS ---
PROCEDURE: XR CHEST 2V INDICATIONS: 3 wk URI symptoms TECHNIQUE: 2 views of the chest were acquired. COMPARISON: None. FINDINGS: Surgical changes and devices: None. Lungs and pleura: Hyperinflation consistent with COPD. Lungs are clear. No pleural effusions or pneumothorax. Mediastinum: Mediastinal contours are normal. Heart size is normal. Bones and chest wall: No suspicious bony abnormalities. Soft tissues appear unremarkable. IMPRESSION: 1. No acute cardiopulmonary disease. 2. COPD. Dictated by: Barrett Pittman M.D. on 08/06/2019 at 17:02 Approved by: Barrett Pittman M.D. on 08/06/2019 at 17:03
== END ==
PROVIDERS: PCP Internal Medicine; Visit Provider Internal Medicine
DX: R91.8 Other nonspecific abnormal finding of lung field (principal); J06.9 Acute upper respiratory infection, unspecified; J44.9 Chronic obstructive pulmonary disease, unspecified
CPT/HCPCS: 71046

== ENCOUNTER → 2019-09-24 14:41 | Outpatient (CLI) | payer MEDICARE, OTHER, SELFPAY ==
[2019-02-21 11:31] VITALS: BMI 25.9
[2019-09-24 15:40] LABS: Blood Urea Nitrogen 23 mg/dL (9-20); Estimated Glomerular Filt Rate > 60.0 mL/min (>60)
== END ==
PROVIDERS: PCP Internal Medicine; Referring Provider Orthopaedic Surgery; Visit Provider Orthopaedic Surgery
DX: Z01.818 Encounter for other preprocedural examination (principal); Z98.1 Arthrodesis status
CPT/HCPCS: 36415; 82565; 84520

== ENCOUNTER → 2020-06-04 14:35 | Outpatient (CLI) | payer MEDICARE, OTHER, SELFPAY ==
[2019-02-21 11:31] VITALS: BMI 25.9
[2020-06-04 17:46] LABS: Vitamin B12 623 pg/mL (239-931)
[2020-06-04 18:01] LABS: Folate 9.4 ng/mL (2.76-20.0)
[2020-06-08 17:37] LABS: Albumin 3.9 g/dL (2.9-4.4); Alpha-1-Globulin 0.1 g/dL (0.0-0.4); Alpha-2-Globulin 0.9 g/dL (0.4-1.0); Globulin Total 3.1 g/dL (2.2-3.9)
== END ==
PROVIDERS: PCP Internal Medicine; Referring Provider Psychiatry & Neurology Neurology; Visit Provider Psychiatry & Neurology Neurology
DX: R73.03 Prediabetes (principal); G63 Polyneuropathy in diseases classified elsewhere
CPT/HCPCS: 36415; 82607; 82746; 83036; 84155; 84165

== ENCOUNTER → 2020-10-28 11:03 | Outpatient (CLI) | payer MEDICARE, OTHER, SELFPAY ==
[2019-02-21 11:31] VITALS: BMI 25.9
--- NOTE | 2020-10-28 12:00 | DIET.PN ---
Diabetes Intake: Initial Assessment Assess: Mr. Grier is a 80 yom referred for type 2 diabetes. He reports changes to eating habits since diagnosis of pre-diabetes over the last years. He is unclear of carbohydrate containing foods or what his portion should look like. He has not been able to exercise due to chronic LLE pain. Labs: Per pt report: 6.0 Meds: simvastatin 20mg; losartan 50mg; duloxetine 20u Diet: per 24 hr recall: B: cream of wheat, br sugar/cream, toast L: fish n chips; fried seafood; burger; crab sandwich D: steak; burgers; spaghetti w/ meatballs; seafood always starch/veg Sn: candy, cupcake, banana, berries, sm scoop icecream Wt: 183lb Ht: 70lb BMI: 26.3 DX: Altered nutrition related laboratory values related to impaired glucose metabolism, lack of previous exposure to nutrition information as evidenced by pt report, diagnosis of diabetes, previous diet high in refined carbohydrates. Intervention: 1. Completed intake assessment. Discussed barriers to care. 2. Discussed pathophysiology of diabetes. Reviewed A1c and its correlation to blood glucose numbers. Discussed recommended BG ranges. 3. Discussed importance of self-monitoring, how often, and when to check. 4. Reviewed hyper/hypoglycemia and treatment. 5. Reviewed safe disposal of equipment (strip/lancets/insulin needles). 6. Created SMART goals for pt self-care and success. 7. Discussed program curriculum outline and class needs based on individual goals. SMART Goals: 1. Pt goal A1c <5.6 through improved eating habits, carb consistency, and portion control. Monitor/Evaluate: Pt will attend full DSME program. Basic Nutrition class scheduled for Nov 03.
== END ==
PROVIDERS: PCP Student in an Organized Health Care Education/Training Program; Referring Provider Student in an Organized Health Care Education/Training Program; Visit Provider Student in an Organized Health Care Education/Training Program
DX: E11.9 Type 2 diabetes mellitus without complications (principal)
CPT/HCPCS: G0108

== ENCOUNTER → 2020-10-30 12:03 | Outpatient (CLI) | payer MEDICARE, OTHER, SELFPAY ==
[2019-02-21 11:31] VITALS: BMI 25.9
--- NOTE | 2020-10-30 12:06 | DI.RAD.S_ITS ---
PROCEDURE: XR LUMBAR SPINE MIN 4V INDICATIONS: DEGENERATION, PAIN TECHNIQUE: 5 views of the lumbar spine were acquired, including bilateral oblique views. COMPARISON: [facility], CR, XR LUMBAR SPINE 2-3V, 02/21/2019, 8:21. [facility], CR, XR LUMBAR SPINE 2-3V, 07/06/2018, 13:11. FINDINGS: Bones: 5 nonrib-bearing vertebrae are present. There is normal bony alignment maintained by L5-S1 posterior fusion and interbody disc prosthesis, previously present. There is no evidence of device loosening or disruption.. No vertebral body compression fractures. No suspicious bony lesions. Soft tissues: Overlying bowel gas pattern is normal. No suspicious soft tissue calcifications. Oblique images: No pars defects. IMPRESSION: L5-S1 prior fusion and interbody disc prosthesis device, stable over time. No evidence of compression fracture, no worsening mild degenerative disc disease and facet osteoarthritis. Source of new pain is not seen. Dictated by: Gautam Leon M.D. on 10/30/2020 at 13:38 Approved by: Gautam Leon M.D. on 10/30/2020 at 13:40
== END ==
PROVIDERS: PCP Student in an Organized Health Care Education/Training Program; Referring Provider Student in an Organized Health Care Education/Training Program; Visit Provider Student in an Organized Health Care Education/Training Program
DX: M51.36 Other intervertebral disc degeneration, lumbar region (principal); M54.5 Low back pain; M54.16 Radiculopathy, lumbar region
CPT/HCPCS: 72110

== ENCOUNTER → 2020-11-03 09:53 | Outpatient (CLI) | payer MEDICARE, OTHER, SELFPAY ==
[2019-02-21 11:31] VITALS: BMI 25.9
--- NOTE | 2020-11-03 12:03 | DIET.PN ---
Diabetes: Healthy Eating 2 Intervention: Fats effects on glucose, weight, heart disease, cholesterol Sat Vs Unsat Protein- animal and plant based options Low, med, high fat meats Sugar substitutes Sodium Health claims Grocery shopping guidelines Eating away from home Alcohol Sick day guidelines Ketone Testing
== END ==
PROVIDERS: PCP Student in an Organized Health Care Education/Training Program; Referring Provider Student in an Organized Health Care Education/Training Program; Visit Provider Student in an Organized Health Care Education/Training Program
DX: E11.9 Type 2 diabetes mellitus without complications (principal); Z71.3 Dietary counseling and surveillance
CPT/HCPCS: G0109

== ENCOUNTER → 2020-11-24 09:58 | Outpatient (CLI) | payer MEDICARE, OTHER, SELFPAY ==
[2019-02-21 11:31] VITALS: BMI 25.9
--- NOTE | 2020-11-24 12:21 | DIET.PN ---
Diabetes: Healthy Eating 1 Intervention: ? Discussed pathophysiology of diabetes and impact of nutrition/diet on blood sugar control.? Discussed fed versus non-fed state.?? ? Reviewed importance of Balance, Variety, and Moderation. ? Discussed the effect of carbohydrates/protein/fat on blood sugar control.? ? Stressed importance of consistent carbohydrate intake at each meal and provided instructions for recommended servings/portions of carbohydrates/protein per meal. Provided educational material. ? Reviewed carbohydrate counting and measuring carbohydrate content via serving sizes and reading nutrition labels.? Provided handouts.?? ? Discussed the difference between simple versus complex carbohydrates and the effect of fiber on blood sugar control.? Discussed various methods to increase fiber content in diet. ? Discussed the plate method for creating more carbohydrate conscious balanced meals. ? Stressed importance of meal timing and not going >4-5 hours between meals. Encouraged adding protein to evening snack to support glucose control overnight. ? Discussed importance of making dietary habits part of lifestyle change.
== END ==
PROVIDERS: PCP Student in an Organized Health Care Education/Training Program; Referring Provider Student in an Organized Health Care Education/Training Program; Visit Provider Student in an Organized Health Care Education/Training Program
DX: E11.9 Type 2 diabetes mellitus without complications (principal); Z71.3 Dietary counseling and surveillance
CPT/HCPCS: G0109

== ENCOUNTER → 2020-11-30 13:18 | Outpatient (CLI) | payer MEDICARE, OTHER, SELFPAY ==
[2019-02-21 11:31] VITALS: BMI 25.9
[2020-11-30 18:37] LABS: COVID19 -Nasal RAPID Negative (Negative)
== END ==
PROVIDERS: PCP Student in an Organized Health Care Education/Training Program; Visit Provider Physical Medicine & Rehabilitation
DX: Z20.822 Contact with and (suspected) exposure to COVID-19 (principal)
CPT/HCPCS: 87635; C9803

== ENCOUNTER 2020-12-01 15:02 | Outpatient (CLI) | payer MEDICARE, OTHER, SELFPAY ==
[2019-02-21 11:31] VITALS: BMI 25.9
[2020-12-01] VITALS (10 sets, daily range): BP systolic 117–153; BP diastolic 57–90; PULSE 78–90; RESP 15–20; TEMP 36.4; O2SAT 92–96
--- NOTE | 2020-12-01 15:04 | DI.RAD.S_ITS ---
PROCEDURE: PAIN L INTERLAMINAR/CAUDAL INJ INDICATIONS: SPONDYLOSIS COMPARISON: [facility], CR, XR LUMBAR SPINE MIN 4V, 10/30/2020, 12:18. FINDINGS: Fluoroscopic spot filming was performed to verify placement of a spinal needle at the L5-S1 level, as labeled on the films. Appropriate location of the needle tip was confirmed by injection of iodinated contrast. IMPRESSION: No significant intraprocedural abnormality. Dictated by: Suresh Kenny M.D. on 12/01/2020 at 15:22 Approved by: Suresh Kenny M.D. on 12/01/2020 at 15:23
[2020-12-01] MEDS: MIDAZOLAM 5 MG/5 ML VIAL IV (15:34)
[2020-12-01] MEDS: fentaNYL 100 MCG/2 ML INJ 50 MCG IV (15:34)
[2020-12-01] MEDS: DEXAMETHASONE 10 MG/ML VIAL 20 MG INJ (15:38)
[2020-12-01] MEDS: IOPAMIDOL 15 ML VIAL 3 ML INJ (15:38)
[2020-12-01] MEDS: BUPIVACAINE 0.25% (PF) VIAL 2 ML INJ (15:38)
[2020-12-01] MEDS: methylPREDNISolone acetate 80 MG/ML VIAL INJ (15:40)
--- NOTE | 2020-12-01 15:49 | PM.PROC.IR.1 ---
Date/Time/Diagnoses Date of procedure: 12/01/20 Time of procedure: 15:49 Pre-procedure diagnosis: 1. HNP WITH RADICULAR FEATURES, 2. MULTILEVEL CENTRAL STENOSIS, Post-procedure diagnosis: same Procedure Notes Procedure: 1. FLUOROSCOPICALLY GUIDED CONTRAST CONTROLLED INTERLAMINAR EPIDURAL STEROID INJECTION - L5/S1 Indications: Vikram is referred by ESTEPHANIE Singh for treatment of Bilateral Foraminal Stenosis L>R LE symptoms. Physician: Audie Michael Total Fluoroscopy time (seconds): 8 Total sedation minutes: 10 Complications: none Procedure in detail & Post-procedure care: FINDINGS Multilevel Central Spinal Stenosis with Nerve Root Compression DESCRIPTION OF PROCEDURE Fluoroscopically guided, contrast-controlled L5/S1 translaminar epidural steroid injection. Following review of allergy and review of potential side effects and complications, including, but not necessarily limited to, infection, allergic reaction, local tissue breakdown, temporary as well as permanent nerve injury, paralysis, stroke and possible , the patient indicated that the patient understood and agreed to proceed. An informed consent document was signed by the patient, witnessed by a nurse, and placed in the patient's chart. Additionally, other treatment options including modalities, medications, and physical therapy were reviewed with the patient. After review of previous anaesthesic history and IV conscious sedation the patient was deemed safe to proceed with today?s procedure with IV conscious sedation as ASA class II designation. Safety time-out was performed to confirm patient ID, procedure to be performed and site of procedure. IV sedation was accomplished with a combination of 2mg of Versed and 50mcg of Fentanyl administered by the RN after DO order, titrated to patient comfort during the course of the procedure while the patient remained responsive to all verbal commands. In the prone position, following sterile prep and drape of the lumbar region, the L5/S1 translaminar space was identified fluoroscopically. The skin was anesthetized via a 25-gauge, 1.5-inch needle with 1% lidocaine solution. At this point, a 22-gauge short bevel spinal needle was atraumatically introduced and advanced under fluoroscopic guidance into the region of the L5/S1 translaminar space. Depth was confirmed on lateral view. Radiological data, including multiple fluoroscopic views of the lumbar spine, reveal a spinal needle at the L5/S1 translaminar space. Lateral views then show placement of the needle in the epidural space. Subsequent views show contrast material flowing superiorly and inferiorly in the epidural space. No vascular or intrathecal uptake is observed. At this point, using loss of resistance technique with saline and air, the epidural space was entered. This was confirmed following negative aspiration with injection of approximately 1.5cc of Isovue 200, showing excellent epidural flow without vascular or intrathecal uptake. At this point, 1 cc of 1% lidocaine solution combined with 3cc or 20mg of dexamethasone and 80mg of Depo Medrol was injected without incident. The patent tolerated the procedure without signs of symptoms of complications prior to transfer to the recovery area for further monitoring. The patient was then transferred to the recovery area where they were observed for an appropriate period of time after the injection. The patient reported a VAS score of 6 prior to the procedure and a post-procedure VAS of 0. POST OP INSTRUCTIONS The patient was provided a Pain Log to continue to record their response to the target-specific procedure prior to follow-up visit with their referring physician. Additionally, specific post-injection care instructions and a contact number to our office were provided if concerns arise regarding possible complications associated with the procedure are suspected.
== END 2020-12-01 16:12 | disposition home or self-care (01) ==
LOC: RAD 15:03
PROVIDERS: PCP Student in an Organized Health Care Education/Training Program; Referring Provider Physical Medicine & Rehabilitation; Visit Provider Physical Medicine & Rehabilitation
DX: M51.17 Intervertebral disc disorders with radiculopathy, lumbosacral region (principal)
CPT/HCPCS: 62323; 99152; J0702; J1040; J1100; J2250; J3010

== ENCOUNTER → 2021-03-08 07:48 | Outpatient (CLI) | payer MEDICARE, OTHER, SELFPAY ==
[2019-02-21 11:31] VITALS: BMI 25.9
[2021-03-08 12:32] LABS: COVID19 -Nasal RAPID Negative (Negative)
== END ==
PROVIDERS: PCP Student in an Organized Health Care Education/Training Program; Visit Provider Physical Medicine & Rehabilitation
DX: Z20.822 Contact with and (suspected) exposure to COVID-19 (principal)
CPT/HCPCS: 87635; C9803

== ENCOUNTER 2021-03-09 12:28 | Outpatient (CLI) | payer MEDICARE, OTHER, SELFPAY ==
[2019-02-21 11:31] VITALS: BMI 25.9
[2021-03-09] VITALS (9 sets, daily range): BP systolic 116–148; BP diastolic 58–73; PULSE 61–73; RESP 13–20; TEMP 36.5; O2SAT 93–99
--- NOTE | 2021-03-09 12:29 | DI.RAD.S_ITS ---
PROCEDURE: PAIN L/S TRANSFORAM INJECT ISH COMPARISON: None. INDICATIONS: SPONDYLOSIS FINDINGS: Bilateral L4-5 transforaminal epidural steroid injection needle tip localization. IMPRESSION: Prior posterior spine fusion with interbody cage disc prosthesis at L5-S1, successful needle tip localization for bilateral L4-L5 transforaminal epidural steroid injection. Dictated by: Gautam Leon M.D. on 03/09/2021 at 14:53 Approved by: Gautam Leon M.D. on 03/09/2021 at 14:54
[2021-03-09] MEDS: MIDAZOLAM 5 MG/5 ML VIAL IV (13:05)
[2021-03-09] MEDS: fentaNYL 100 MCG/2 ML INJ 50 MCG IV (13:05)
[2021-03-09] MEDS: BUPIVACAINE 0.25% (PF) VIAL 2 ML INJ (13:14)
[2021-03-09] MEDS: IOPAMIDOL 15 ML VIAL 3 ML INJ (13:14)
[2021-03-09] MEDS: BETAMETHASONE 30 MG/5 ML MDV 12 MG INJ (13:14)
[2021-03-09] MEDS: DEXAMETHASONE 10 MG/ML VIAL 20 MG INJ (13:14)
--- NOTE | 2021-03-09 13:24 | P.PCN_ITS ---
Date/Time/Diagnoses Date of procedure: 03/09/21 Time of procedure: 13:25 Pre-procedure diagnosis: 1. FORAMINAL STENOSIS WITH LE SYMPTOMS Procedure Notes Procedure: 1. FLUOROSCOPICALLY GUIDED CONTRAST CONTROLLED TRANSFORAMINAL EPIDURAL STEROID INJECTION - BILATERAL L4/5 TFESI Indications: Vikram is referred by Cristino Singh for treatment of Foraminal Stenosis with bilateral LE Symptoms Physician: Audie Michael Total Fluoroscopy time (seconds): 16 Total sedation minutes: 16 Complications: none Procedure in detail & Post-procedure care: FINDINGS Foraminal Nerve Root Compression secondary to disc disease and facet hypertrophy DESCRIPTION OF PROCEDURE Following review of allergy and review of potential side effects and complications, including, but not necessarily limited to, infection, allergic reaction, local tissue breakdown, stroke, temporary or permanent nerve injury, paralysis, and possible , the patient indicated that the patient understood and agreed to proceed. An informed consent document was signed by the patient, witnessed by a nurse, and placed in the patient's chart. Additionally, other treatment options including medications, modalities, and physical therapy were reviewed with the patient. After review of previous anaesthesic history and IV conscious sedation the patient was deemed safe to proceed with today?s procedure with IV conscious sedation as ASA class II designation. Safety time-out was performed to confirm patient ID, procedure to be performed and site of procedure. IV sedation was accomplished with a combination of 2mg of Versed and 50mcg of Fentanyl was administered by the RN after DO order, titrated to patient comfort during the course of the procedure while the patient remained responsive to all verbal commands In the prone position following sterile prep and drape of the lumbar region, the right L4/5 posterior neuroforamen was identified fluoroscopically. The skin was anesthetized via a 25-gauge 1.5-inch needle with 1% lidocaine solution. At this point, a 25-gauge 3.5-inch spinal needle was atraumatically introduced and advanced under fluoroscopic guidance through the posterior right L4/5 neuroforamen to approximately the anterior aspect of the canal. Depth was con firmed on lateral view. Following negative aspiration, injection of approximately 1.5cc of Isovue 200 under live fluoroscopy in the AP view confirmed excellent flow along the nerve root, into the epidural space without vascular or intrathecal uptake observed Radiological data, including multiple fluoroscopic views of the lumbosacral spine, reveal a spinal needle at the right L4/5 posterior neuroforamen. Subsequent views show flow of contrast material flowing superiorly and inferiorly along the nerve root confirming epidural flow. Subsequently, a test dose of 1.5cc of 1% lidocaine solution was administered and patient was observed for two minutes for signs or symptoms of complications, including abdominal pain, shortness of breath, bilateral upper or lower extremity weakness, nausea and vomiting, prior to steroid injection. At this point, a total of 3cc or 20mg of dexamethasone and 6mg betamethasone was injected without incident. Attention was then refocused to the left L4/5 level where the identical procedure was replicated. The procedure tolerated the procedure well without signs or symptoms of complications prior to transfer to the recovery area continued monitoring w ithout incident. The patient was then transferred to the recovery area where they were observed for an appropriate time after the injection. The patient reported a VAS score of 7 prior to the procedure and a post-procedure VAS of 0. POST OP INSTRUCTIONS The patient was provided a Pain Log to continue to record their response to the target-specific procedure prior to follow-up visit with their referring physician. Additionally, specific post-injection care instructions and a contact number to our office were provided if concerns arise regarding possible complications associated with the procedure are suspected.
== END 2021-03-09 14:13 | disposition home or self-care (01) ==
LOC: RAD 12:29
PROVIDERS: PCP Student in an Organized Health Care Education/Training Program; Referring Provider Physical Medicine & Rehabilitation; Visit Provider Physical Medicine & Rehabilitation
DX: M48.061 Spinal stenosis, lumbar region without neurogenic claudication (principal); M51.16 Intervertebral disc disorders with radiculopathy, lumbar region
CPT/HCPCS: 64483; 99152; J0702; J1100; J2250; J3010

== ENCOUNTER → 2021-08-16 11:11 | Outpatient (CLI) | payer MEDICARE, OTHER, SELFPAY ==
[2019-02-21 11:31] VITALS: BMI 25.9
[2021-08-16 13:42] LABS: COVID19 -Nasal RAPID Negative (Negative)
== END ==
PROVIDERS: PCP Student in an Organized Health Care Education/Training Program; Visit Provider Physical Medicine & Rehabilitation
DX: Z20.822 Contact with and (suspected) exposure to COVID-19 (principal)
CPT/HCPCS: 87635; C9803

== ENCOUNTER 2021-08-17 14:43 | Outpatient (CLI) | payer MEDICARE, OTHER, SELFPAY ==
[2019-02-21 11:31] VITALS: BMI 25.9
[2021-08-17] VITALS (9 sets, daily range): BP systolic 118–155; BP diastolic 61–71; PULSE 61–78; RESP 11–23; TEMP 36.5; O2SAT 95–100
--- NOTE | 2021-08-17 14:46 | DI.RAD.S_ITS ---
PROCEDURE: PAIN L INTERLAMINAR/CAUDAL INJ INDICATIONS: PAIN/ WEAKNESS STATUS POST FUSION COMPARISON: [facility], XA, PAIN L INTERLAMINAR/CAUDAL INJ, 12/01/2020, 15:39. FINDINGS: Fluoroscopic spot filming was performed to verify placement of spinal needles at the right proximal sacrum, as labeled on the films. Appropriate location(s) of the needle tip(s) was confirmed by injection of iodinated contrast. IMPRESSION: Fluoroscopic support for right interlaminar/caudal steroid injection. Please see procedural note for further details. Dictated by: Tay Fonseca M.D. on 08/17/2021 at 17:12 Approved by: Tay Fonseca M.D. on 08/17/2021 at 17:14
[2021-08-17] MEDS: fentaNYL 100 MCG/2 ML INJ 50 MCG IV (15:43)
[2021-08-17] MEDS: MIDAZOLAM 5 MG/5 ML VIAL IV (15:43)
--- NOTE | 2021-08-17 15:59 | P.PCN_ITS ---
Date/Time/Diagnoses Date of procedure: 08/17/21 Time of procedure: 15:59 Pre-procedure diagnosis: 1. MULTILEVEL SPINAL STENOSIS 2. POST FUSION SYNDROME This procedure is found to meet the Governor's proclamation 20-24.2 regarding non urgent procedures. This patient meets multiple criteria for the procedure including continuing or worsening of significant or severe pain, combined with further deterioration of the patient's condition or overall health as well as delay in treatment would be expected to result in less positive ultimate medical outcome. Therefore the decision to perform the procedure in an outpatient hospital setting is found to be in accordance with guidelines [facility] the [facility]. Post-procedure diagnosis: same Procedure Notes Procedure: 1. FLUOROSCOPICALLY GUIDED CONTRAST CONTROLLED CAUDAL EPIDURAL STEROID INJECTION Indications: Vikram is referred by Dr. Yarbrough for treatment of Multilevel Stenosis Physician: Audie Michael Total Fluoroscopy time (seconds): 8 Total sedation minutes: 11 Complications: none Procedure in detail & Post-procedure care: FINDINGS Multilevel Stenosis S/p Lami/Fusion Syndrome DESCRIPTION OF PROCEDURE Fluoroscopically guided, contrast controlled caudal epidural steroid injection with Conscious Sedation Following review of allergy and review of potential side effects and complications, including but not necessarily limited to infection, allergic reaction, local tissue breakdown, temporary or permanent nerve injury, stroke, paralysis, and possible , the patient indicated that they understood and agreed to proceed. An informed consent document was signed by the patient, witnessed by a nurse, and placed in the patient's chart. Additionally, other treatment options including medications, modalities, and physical therapy were reviewed with the patient. After review of previous anaesthesic history and IV conscious sedation the patient was deemed safe to proceed with today?s procedure with IV conscious s edation as ASA class II designation. Safety time-out was performed to confirm patient ID, procedure to be performed and site of procedure. IV sedation was accomplished with a combination of 2mg of Versed and 50mcg of Fentanyl administered by the RN after DO order, titrated to patient comfort during the course of the procedure while the patient remained responsive to all verbal commands In the prone position, following sterile prep and drape of the lumbar region, the sacral hiatus was identified fluoroscopically. The skin was anesthetized via a 25-gauge, 1.5-inch needle with approximately 2cc of 1% lidocaine solution. At this point, a 25-gauge, 3inch needle was atraumatically introduced and advanced under fluoroscopic guidance to the corresponding sacral hiatus and entering the sacral canal. Following negative aspiration, injection of approximately 0.3cc of Isovue 300 confirmed interarticular placement without vascular uptake. Radiological data, including multiple fluoroscopic views of the lumbosacral spine, reveal a spinal needle in the sacral canal through the sacral hiatus. Subsequent views show flow of contrast material superiorly and inferiorly in the sacral canal without vascular or intrathecal uptake. At this point, a total of 6cc including 2cc or 12mg of betamethasone, 2cc or 20mg dexamethasone and 2cc of 1% lidocaine solution was injected without complication. The patient tolerated the procedure well without signs or symptoms of complications prior to transfer to the recovery area continued monitoring without incident. The patient was then transferred to the recovery area where they were observed for an appropriate period of time after the injection. The patient reported a VAS score of 10 prior to the procedure and a post-procedure VAS of 2. POST OP INSTRUCTIONS The patient was provided a Pain Log to continue to record their response to the target-specific procedure prior to their follow-up visit with the referring physician. Additionally, specific post-injection care instructions and a contact number to our office were provided if concerns arise regarding possible complications associated with the procedure are suspected.
== END 2021-08-17 16:20 | disposition home or self-care (01) ==
PROVIDERS: PCP Family Medicine; Referring Provider Physical Medicine & Rehabilitation; Visit Provider Physical Medicine & Rehabilitation
DX: M48.061 Spinal stenosis, lumbar region without neurogenic claudication (principal); M96.1 Postlaminectomy syndrome, not elsewhere classified
CPT/HCPCS: 62323; 99152; J0702; J1100; J2250; J3010

== ENCOUNTER → 2024-01-19 15:53 | Outpatient (CLI) | payer MEDICARE, OTHER, SELFPAY ==
[2019-02-21 11:31] VITALS: BMI 25.9
--- NOTE | 2024-01-19 | DI.RAD.S_ITS ---
PROCEDURE: XR ANKLE LT MIN 3V INDICATIONS: PAIN TECHNIQUE: 3 views of the ankle were acquired. COMPARISON: None. FINDINGS: Bones: No fractures or dislocations. Ankle mortise is normally aligned. No suspicious bony lesions. Soft tissues: No tibiotalar joint effusion. Achilles tendon appears normal. IMPRESSION: No acute bony abnormality or significant effusion. Approved by: Luis Brown M.D. on 01/19/2024 at 18:40
--- NOTE | 2024-01-19 | DI.RAD.S_ITS ---
PROCEDURE: XR ANKLE RT MIN 3V INDICATIONS: WILBERTO TECHNIQUE: 3 views of the ankle were acquired. COMPARISON: None. FINDINGS: Bones: No fractures or dislocations. Ankle mortise is normally aligned. No suspicious bony lesions. Soft tissues: No tibiotalar joint effusion. Achilles tendon appears normal. IMPRESSION: No acute bony abnormality or significant effusion. Approved by: Luis Brown M.D. on 01/19/2024 at 18:40
--- NOTE | 2024-01-19 15:55 | DI.RAD.S_ITS ---
PROCEDURE: XR KNEE RT 1TO2V INDICATIONS: PAIN TECHNIQUE: 3 views of the knee were acquired. COMPARISON: [facility], CR, XR KNEE LT 1TO2V, 01/19/2024, 16:02. FINDINGS: Bones: No fractures or dislocations. Chondrocalcinosis. No significant arthritic change. No suspicious bony lesions. Soft tissues: Small joint effusion. No suspicious soft tissue calcifications. IMPRESSION: Chondrocalcinosis, small knee joint effusion. Dictated by: Keron Vines M.D. on 01/19/2024 at 20:37 Approved by: Keron Vines M.D. on 01/19/2024 at 20:38
--- NOTE | 2024-01-19 15:55 | DI.RAD.S_ITS ---
PROCEDURE: XR KNEE LT 1TO2V INDICATIONS: PAIN IN KNEES TECHNIQUE: 2 views of the knee were acquired. COMPARISON: None. FINDINGS: Bones: No fractures or dislocations. Chondrocalcinosis. No significant osteophytosis or evidence of joint space loss. No suspicious bony lesions. Soft tissues: Mild joint effusion. No suspicious soft tissue calcifications. IMPRESSION: Chondrocalcinosis, mild knee joint effusion. Dictated by: Keron Vines M.D. on 01/19/2024 at 20:36 Approved by: Keron Vines M.D. on 01/19/2024 at 20:37
== END ==
PROVIDERS: PCP Family Medicine; Referring Provider Family Medicine; Visit Provider Family Medicine
DX: M11.262 Other chondrocalcinosis, left knee (principal); M11.261 Other chondrocalcinosis, right knee; M25.561 Pain in right knee; M25.562 Pain in left knee; M25.462 Effusion, left knee; M25.461 Effusion, right knee; M25.571 Pain in right ankle and joints of right foot; M25.572 Pain in left ankle and joints of left foot; G89.29 Other chronic pain
CPT/HCPCS: 73560; 73610

== ENCOUNTER → 2024-04-18 13:32 | Outpatient (CLI) | payer MEDICARE, OTHER, SELFPAY ==
[2019-02-21 11:31] VITALS: BMI 25.9
--- NOTE | 2024-04-18 13:34 | DI.US.S_ITS ---
PROCEDURE: US SOFT TISSUE HEAD AND NECK INDICATIONS: NECK MASS TECHNIQUE: Real-time scanning was performed of the neck region of interest, with image documentation. COMPARISON: [facility], US, SOFT TISSUE HEAD OR NECK, 09/21/2017, 15:49. FINDINGS: At the level of the right suprahyoid/submandibular region, there is a 1.6 x 1.1 x 0.8 cm (previously 1.0 x 0.5 x 0.8 cm) isoechoic, solid mass with a few internal calcifications and without internal vascularity. IMPRESSION: Mild interval increase in size of 1.6 cm mass in the right neck region. CT neck soft tissue with contrast or percutaneous sampling would be recommended for evaluation. Dictated by: Deon Zhang M.D. on 04/19/2024 at 15:26 Approved by: Deon Zhang M.D. on 04/19/2024 at 15:28
== END ==
PROVIDERS: PCP Family Medicine; Referring Provider Family Medicine; Visit Provider Family Medicine
DX: R22.1 Localized swelling, mass and lump, neck (principal)
CPT/HCPCS: 76536

== ENCOUNTER → 2024-05-01 13:25 | Outpatient (CLI) | payer MEDICARE, OTHER, SELFPAY ==
[2019-02-21 11:31] VITALS: BMI 25.9
--- NOTE | 2024-05-01 | PATH_ITS ---
[facility] Accession Number: [id number] No. of containers..01 Tissue . 01 Material submitted: . neck - RIGHT NECK MASS . 01 Diagnosis: RIGHT NECK MASS, BIOPSY: Minute fragments of unremarkable fibroadipose and muscular tissue. Negative for malignancy. See comment. MRV 05/03/2024 1530 Local . 01 Comment: Clinical and radiologic correlation is required to ensure that the area of interest has been sampled. . 01 Electronically signed: . Alan Yap MD, Pathologist NPI- [id number] . 01 Gross description: . Received in formalin with two patient identifiers and neck mass, are multiple mitchell soft tissue fragments aggregating to 0.7 x 0.5 x 0.1 cm. Filtered and submitted in A1. ([id number]) /MRV 05/02/2024 1922 Local . 01 Pathologist provided ICD-10: R22.1 . 01 CPT . 715320 Specimen Comment: A courtesy copy of this report has been sent to [facility] Pathology Performed at: [address] [address], [place], [place] [id number] MD Carlos Hernandez MD Phone: [phone]
--- NOTE | 2024-05-01 13:28 | DI.US.S_ITS ---
PROCEDURE: US GUIDE FOR BIOPSY INDICATIONS: RT NECK MASS BX PER RECENT ULTRASOUND TECHNIQUE: Real-time scanning was performed of the neck, and a suitable site for percutaneous access was marked by the lace sewer. Patient was prepped and draped in standard sterile fashion. Right lateral neck skin was anesthetized using 1 percent lidocaine. A biopsy needle was inserted into the right lateral neck soft tissue mass. Multiple biopsy specimens were obtained . The needle was subsequently withdrawn and hemostasis was achieved. No complications. COMPARISON: [facility], , US SOFT TISSUE HEAD AND NECK, 04/18/2024, 14:02. FINDINGS: 7 fragmented specimens were were obtained from the right neck soft tissue mass. IMPRESSION: Technically successful ultrasound-guided right neck soft tissue mass biopsy. Dictated by: Aquiles Alcala M.D. on 05/01/2024 at 17:13 Approved by: Aquiles Alcala M.D. on 05/01/2024 at 17:15
== END ==
PROVIDERS: PCP Family Medicine; Referring Provider Family Medicine; Visit Provider Family Medicine
DX: R22.1 Localized swelling, mass and lump, neck (principal)
CPT/HCPCS: 76942; 87070; 87075; 87205